=== PATIENT | female | born 1950 | race Caucasian/White ===

== ENCOUNTER 2021-05-20 16:27 | Outpatient (REF) | payer MEDICARE, SELFPAY ==
--- NOTE | ~2021-05-20 | CT_ITS ---
EXAMINATION: CT CHEST WITHOUT CONTRAST CLINICAL INFORMATION: Bronchiectasis. COMPARISON: Previous chest CT October 2020. TECHNIQUE: Multidetector volumetric CT imaging of the chest was done. Axial MIP volume rendering provided. Sagittal and coronal reformatted images were obtained. This CT examination was performed using dose optimization techniques as appropriate, variously including the following: *Automated exposure control *Adjustment of mA and/or kV according to patient size (this includes techniques or standardized protocols for targeted exams where dose is matched to indication/reason for exam; i.e. extremities or head) *Use of iterative reconstruction technique DLP: 82 mGy-cm FINDINGS: LUNGS: There is diffuse bronchiectasis and bronchial wall thickening. This is greatest in the bilateral upper lobes. There are scattered areas of bronchial wall thickening and peribronchial nodules suggestive of active airways disease. This may be slightly increased in the right middle lobe compared to October 2020 exam. There is increasing focal bronchiectasis or cystic change in the left upper lobe, for example axial image 20 series 3 measuring approximately 1 x 1.5 cm. Otherwise, this does not appear appreciably changed. There is bilateral upper lobe volume loss, left greater than right. This does not appear appreciably changed. There are multiple bilateral pulmonary nodules. This has a mixed appearance. Largest pulmonary nodules are measured. There is a 7 x 9 mm left upper lobe nodule axial image 15 series 3. This is slightly decreased in size from 7 x 11 mm October 2020 exam. There is a new 5 x 7 mm anterior right upper lobe nodule axial image 17 series 3. Previously identified adjacent 5 mm right upper lobe nodule seen on October 2020 exam axial image 10 series 2 is no longer seen. There is a new 8 x 10 mm superior segment left lower lobe nodule axial image 23 series 3. There is new airspace disease and peribronchial nodules seen in the medial segment of the right middle lobe, for example axial image 26 and 32 series 3. There is an irregularly-shaped 4 x 10 mm left lower lobe nodule axial image 32 series 3 that is decreased in size from 7 x 10 mm axial image 27 series 17 October 2020 exam. There are multiple additional smaller bilateral pulmonary nodules. MEDIASTINUM: There is mild coronary artery calcification. The mediastinum is otherwise normal. PLEURA: There is no pleural effusion. No pleural mass or thickening. AXILLA: No lymphadenopathy. UPPER ABDOMEN: Unremarkable. OSSEOUS STRUCTURES: There is a T10 vertebral body hemangioma. There is slight loss of height of the T8 vertebral body suggestive of mild compression fracture that is unchanged. Curvature of the lower thoracic spine to the right mild degenerative changes. CT/CT chest wo con IMPRESSION: Bilateral diffuse bronchiectasis and bronchial wall thickening, greatest in the upper lobes. This may be slightly increased in the right middle lobe compared to October 2019 exam. Mixed appearance of bilateral pulmonary nodules. Fleischner guidelines were followed.
== END 2021-05-20 16:28 | disposition home or self-care (01) ==
LOC: HO.CT 16:27
PROVIDERS: Visit Provider Internal Medicine Critical Care Medicine
DX: A31.9 Mycobacterial infection, unspecified (principal); R91.8 Other nonspecific abnormal finding of lung field
CPT/HCPCS: 71250

== ENCOUNTER 2024-11-15 13:10 | Outpatient (AMB) | payer OTHER, SELFPAY ==
--- NOTE | 2024-11-15 13:08 | MHC.OFFVIS ---
Vital Signs 11/15/24 13:26 Height 5 ft 3 in Weight 125 lb BMI 22.1 BP 112/64 Blood Pressure Location Rt brachial Position Sitting Intake Visit Reasons: ENP - Tremor Intake Note: Patient refrred by Gena delgado for tremors and parkinsons dx Allergies No Known Allergies Allergy (Verified 11/15/24 13:15) Medication List - Last Reconciled 11/15/24 by Salma Clarke MD albuterol sulfate 2.5 mg inhalation Q20M calcium citrate-vitamin D3 315 mg-5 mcg (200 unit) 1 tab PO DAILY carbidopa-levodopa 25-100 mg (Sinemet) 1 tab PO BID cholecalciferol (vitamin D3) 25 mcg PO DAILY cyanocobalamin (vitamin B-12) 1,000 mcg PO DAILY denosumab 120 mg subcut Q4W duloxetine 60 mg PO DAILY eletriptan (Relpax) 20 mg PO Q2-4H PRN fluoxetine 10 mg PO DAILY food supplemt, lactose-reduced ea PO gabapentin 300 mg PO BEDTIME hydrocortisone 1% (Anti-Itch (hydrocortisone)) 1 appl topical BID PRN naproxen 500 mg PO BID nitrofurantoin monohyd/m-cryst 100 mg (Macrobid) 100 mg PO BID pantoprazole DR (Protonix) 40 mg PO DAILY primidone 50 mg PO BEDTIME propranolol ER (Inderal LA) 80 mg PO BEDTIME riboflavin (vitamin B2) 25 mg PO DAILY zonisamide 25 mg PO DAILY HPI Comments Details: 73y/o female comes for evaluation of tremors<del>.</del> she has family h/o essential tremors - father. she was also diagnosed with Essential tremors more than 40 years ago Her tremors worsened in her left UE and LE - rest tremors and her also noticed worsening of gait, stiffness and slowness of movements, softer voice smaller handwriting etc . she was seen at [facility] movement disorder clinic and had ANALY scan which was positive. she has chronic sleep issues.difficulty sleeping , sleep talking. Mood- on medication for depression she is slower in using utensils She needs help with dressing , showers .she also has swallowing issues.she needs assistance with all her ADLS. Memory is not good- has word retrieval issues. Denies dizziness , hallucinations. she has double vision she has constipation . she takes sennakot she has gait problems and has frequent falls. she was started on sinemet 25/100 bid by PCP> she has h/o seizure disorder - followed up by [facility] Epilepsy clinic .Last seizure was more than 12 years ago. [facility] Medical History (Updated 11/15/24 @ 13:55 by Salma Clarke MD) Hx of migraines Humerus fracture Bronchiectasis Epilepsy Parkinson disease Tremor Depression Surgical History (Updated 11/15/24 @ 13:24 by NANCY Ching) H/O wrist surgery History of hip surgery Family History (Updated 11/15/24 @ 13:25 by NANCY Ching) Mother Emphysema lung Father Lung cancer Social History (Updated 11/15/24 @ 13:24 by NANCY Ching) Alcohol intake: never Patient Tobacco Use Status: Never used Tobacco Physical Exam Vital Signs: Last Vital Signs BP 112/64 11/15/24 13:26 BMI result Body Mass Index 22.1 Const General: cooperative, comfortable and no acute distress Neuro Other: Antecollis decreased facial expression and blink Mild left hand rest tremors 1 cogwheel rigidity left UE FFM mildly decreased Foot taps - severely decreased Gait slow stooped, loss of balance speech hypophonia Assessment & Plan Assessment & Plan (1) Parkinson disease: Code(s): G20.A1 - Parkinson's disease without dyskinesia, without mention of fluctuations Category: Medical Qualifiers: Dyskinesia presence: without dyskinesia Fluctuating manifestations: without fluctuating manifestations Qualified Code(s): G20.A1 - Parkinson's disease without dyskinesia, without mention of fluctuations (2) Epilepsy: Code(s): G40.909 - Epilepsy, unspecified, not intractable, without status epilepticus Qualifiers: Epilepsy type: unspecified Intractability: not intractable Plan Discussed with her about Parkinsons disease I will trial higher dose of carbidopa/levodopa 25/100 tid Continue PT ANALY scan from [facility] Home speech therapy Orders: Orders PT Evaluation and Treatment Today G20.A1 - Parkinson's disease without dyskinesia, without mention of fluctuations [facility]errals [facility] Referral G20.A1 - Parkinson's disease without dyskinesia, without mention of fluctuations Medications: New carbidopa-levodopa 25-100 mg (Sinemet) 1 tab PO TID 90 tabs 2RF Coding Level of Care Code New Pt Level 4 (87907) Complex EM visit Add On G2211 Diagnoses Parkinson's disease without dyskinesia or fluctuating manifestations G20.A1 Dyskinesia presence: without dyskinesia Fluctuating manifestations: without fluctuating manifestations Epilepsy G40.909 Epilepsy type: unspecified Intractability: not intractable
[2024-11-15 13:26] VITALS: BP 112/64; BMI 22.1
--- OUTSIDE RECORDS SUMMARY | 2024-11-15 14:15 | XMS_ITS | Patient Health Record ---
Author Organization [facility] [place] Address [address] [place] [address] Care Team Providers Care Linen Room Custodian Name Role Phone Víctor Desir Primary Care Provider Reason For Referral No Information Plan Of Treatment No Information
--- OUTSIDE RECORDS SUMMARY | 2024-11-15 14:16 | XMS_ITS | Data Portability ---
Author Organization [employer] [facility], [facility] Address [address] [place] [address] Care Team Providers Care Credit Operations Processor Name Role Phone SANA THORNTON Primary Care Provider HIM CCA OTHER Assessment Encounter Date Assessment Date Assessment LastModified by Organization Details LastModified Time 04/14/2023 04/14/2023 72 yo F with recent rehab stay, now with few days of increased urinary frequency. Pt does not straight cath, unclear why that was reported history. VS wnl. No abd pain on exam. Voided UA with +nitrites, 2+ LEs, 3+blood c/w uncomplicated UTI. UCX sent to [employer]. Given ceftriaxone 1g. Will pick pulling machine operator rx macrobid BID x remaining 4 days tomorrow. [email or web address] Not available 04/14/2023 21:05:56 07/22/2024 07/22/2024 I provided real -time medical direction via phone for this encounter, and was available for additional phone based assistance as needed. I have reviewed and agree with the Assessment and Plan as documented by the Route Vending Machine Servicer. We discussed the diagnostic uncertainty of home visits and the risk associated with this. Advised we cannot draw labs as this is a BLS visit and cannot fully work up AMS in the home. She has an appointment with her PCP August 19. I suggested to the patient's that she try and move it up in case there is a cancellation and she verbalized that she would try but she doubted it would happen. In this case the patient and I felt this to be an acceptable and reasonable amount of risk given the benefit of avoiding an ED visit. The patient/ Zofia given the opportunity to ask questions. Advised if develops CP/severe SOB/turning blue/uncontrolle d n/v/d / severely increasing AMS/uncontrolled seizures/syncope /acute focal neurologic deficits such as acute weakness, speech changes/hi fever to call 911-patient and verbalized understanding of instructions to me [email or web address] Not available 07/22/2024 15:51:07 Plan of Treatment Reminders Order Date Submit Date Provider Last Modified By Organization Details Last Modified Time Details Appointments None recorded. Lab culture, urine 2024 025 [facility] (Centralized Electronic Ordering - All Locations), Patient Can Go To The Location Of Their Choice, [id number] 08:10:41 urinalysis, dipstick 2024 025 [facility], [address] [place] [address], [phone] 5 21:27:53 culture, urine 2022 023 [facility], [address] [place] [address], [place], [address], 06:37:22 urinalysis, dipstick [address], [address] [place] [address], [phone] 19:44:35 Referral None recorded. Procedures None recorded. Surgeries None recorded. Imaging None recorded. Medication Orders Macrobid 100 mg capsule 2022 023 [facility]/Pharmacy #[id number], [address] [place], [address], 19:44:35 ceftriaxone 1 gram solution for injection 2022 023 [email or web address] 7 [facility]/Pharmacy #[id number], [address] [place], [address], 19:44:33 Patient TargetsNo targets recorded. Patient InstructionsNo instructions recorded. Reason for Referral None Reported. Results Created Date Observation Date Name Description Value Unit Range Abnormal Flag Note LastModifiedBy Organization Detail LastModifiedTime 04/14/2004/19/2023 CULTU RE, URINE , ROUTI NE culture, urine, routine SEE NOTE abnormal CULTU RE, URINE , ROUTI NE Micro Numbe r: [id number] Test Statu s: Final Speci men Sourc e: Urine Speci men Quali ty: Adequ ate Resul t: Great er than 100,0 00 CFU/m L of Esche gloria a coli E.col i ----- ----- ----- - INT TOBI AMOX/ CLAVU LANAT E S 4 AMPIC ILLIN R >=32 AMP/S ULBAC AGUILAR I 16 CEFAZ ALBERTO NR <=4 2 CEFEP INDIO S <=1 CEFTA ZIDIM E S <=1 CEFTR IAXON E S <=1 CIPRO FLOXA ABAD S <=0.2 5 GENTA MICIN S <=1 IMIPE NEM S <=0.2 5 LEVOF LOXAC IN S <=0.1 2 NITRO FURAN TOIN S <=16 PIP/T AZOBA CTAM S <=4 TOBRA MYCIN S <=1 TRIME THOPR IM/GALEANO LFA S <=20 S=Oumou cepti ble I=Int ermed iate R=Res istan t * = Not Teste d NR = Not Repor ethel NN = See Thera py Comme nts THERA PY COMME NTS Note 1: For infec tions other than uncom plica ethel UTI cause d by E. coli, K. pneum oniae or P. mirab ilis: Cefaz alberto is resis tant if TOBI > or = 8 mcg/m L. (Dist ingui shing susce ptibl e versu s inter media te for isola ariane with TOBI < or = 4 mcg/m L requi res addit ional testi ng.) Note 2: For uncom plica ethel UTI cause d by E. coli, K. pneum oniae or P. mirab ilis: Cefaz alberto is susce ptibl e if TOBI <32 mcg/m L and predi cts susce ptibl e to the oral agent s cefac kodi, cefdi stephanie, cefpo doxim e, cefpr ozil, cefur oxime , cepha lexin and lorac arbef . Not Available [facility] [address] [place], [place], [address], 04/20/2023 13:00:17 04/14/20 23 04/14/2023 urina lysis , dipst ick Leukocytes ++ Not Available [facility] - [facility] [address] [place] [address], [phone] 04/14/2023 19:38:09 04/14/20 23 04/14/2023 urina lysis , dipst ick Nitrite positi ve Not Available [facility] - [facility] [address] [place] [address], [phone] 04/14/2023 19:38:09 04/14/20 23 04/14/2023 urina lysis , dipst ick Blood 3+ Not Available [facility] - [facility] [address] [place] [address], [phone] 04/14/2023 19:38:09 04/14/20 23 04/14/2023 urina lysis , dipst ick Specific [place] 1.2 Not Available [facility] - [facility] [address] [place] [address], [phone] 04/14/2023 19:38:09 07/23/19 25 07/24/2024 URINE CULTU RE,CO MPREH ENSIV E urine culture,comp rehensive Final report Not Available [facility] ([facility]) [address] [facility], [place], [address], 07/24/2024 08:10:40 07/23/19 25 07/24/2024 URINE CULTU RE,CO MPREH ENSIV E result 1 COMMEN T More than 3 organ isms recov ered, none predo minan t. Pleas e submi t anoth er cultu re if clini kala indic ated. Not Available [facility] ([facility]) [address] [facility], [place], [address], 07/24/2024 08:10:40 Result Notes None recorded. Medical Equipment None Reported. Allergies Allergen ID Allergen Name Allergen Category Reaction Reaction Severity Criticality Documentation Date Start Date Code Code System Note Provider Name and Address Organization Details Recorded Time 94422 Macrobid medicatio n Not available Not available Not available 07/22/2024 81567 1 RxNorm think s the patie nt may devel op diarr hea and a rash with this Mikaela Lux MD [address] [place] [address],[address], [place], [address], [employer], [employer] 15:53:31 75273 lamotrigi ne medicatio n dizziness Not available Not available 07/22/2024 40113 RxNorm Mikaela Lux MD [address] [place] [address],[address], [place], [address], [employer], [employer] 15:54:01 48300 amitripty line medicatio n Not available Not available Not available 07/22/2024 704 RxNorm Mikaela Lux MD [address] [place] [address],[address], [place], [address], [employer], [employer] 15:54:14 51331 amoxicill in medicatio n Not available Not available Not available 07/22/2024 723 RxNorm GI upset Mikaela Lux MD [address] [place] [address],[address], [place], [address], [employer], [employer] 15:54:35 43153 Ativan medicatio n Not available Not available Not available 07/22/202440319 9 RxNorm Mikaela Lux MD [address] [place] [address],[address], [place], [address], [employer], [employer] 15:54:59 03218 Flagyl medicatio n Not available Not available Not available 07/22/202461597 6 RxNorm Mikaela Lux MD [address] [place] [address],[address], [place], [address], [employer], [employer] 15:55:09 36009 nystatin medicatio n Not available Not available Not available 07/22/2024 7597 RxNorm Mikaela Lux MD [address] [place] [address],[address], [place], [address], [employer], [employer] 15:55:14 90554 Velosef medicatio n Not available Not available Not available 07/22/202497 0 RxNorm Mikaela Lux MD [address] [facility],[address], [place], [address], [facility], [place] 5 15:55:21 Medications Name Sig Start Date Stop Date Status Note LastModified by Organization Details LastModified Time fluoxetine 40 mg capsule TAKE 1 CAPSULE (40 MG TOTAL) BY MOUTH DAILY. active Not Available Not Available No t Available primidone 50 mg tablet TAKE 2 TABLETS BY MOUTH 2 TIMES A DAY. active Not Available Not Available No t Available propranolol 80 mg tablet TAKE 1 TABLET (80 MG TOTAL) BY MOUTH 2 TIMES A DAY. active Not Available Not Available No t Available albuterol sulfate 2.5 mg/3 mL (0.083 %) solution for nebulization INHALE 1 VIAL (3 ML) BY NEBULIZATIO N EVERY 6 HOURS NEEDED. active Not Available Not Available No t Available propranolol 60 mg tablet TAKE 1 TABLET (60 MG TOTAL) BY MOUTH 2 TIMES A DAY. active Not Available Not Available No t Available zonisamide 100 mg capsule TAKE 3 CAPSULES (300 MG TOTAL) BY MOUTH ONCE A DAY. active Not Available Not Available No t Available pantoprazole 40 mg tablet,delay ed release TAKE 1 TABLET BY MOUTH EVERY DAY active Not Available Not Available No t Available fluoxetine 10 mg capsule TAKE 1 CAPSULE BY MOUTH EVERY DAY active Not Available Not Available No t Available gabapentin 300 mg capsule TAKE 3 CAPSULES (900 MG TOTAL) BY MOUTH EVERY NIGHT. active Not Available Not Available No t Available fluoxetine 20 mg capsule TAKE 1 CAPSULE BY MOUTH EVERY DAY active Not Available Not Available No t Available Vitamin B-12 1,000 mcg tablet TAKE 1 TABLET (1,000 MCG TOTAL) BY MOUTH DAILY active Not Available Not Available Not Available nitrofuranto in monohydrate/ macrocrystal s 100 mg capsule TAKE 1 CAPSULE BY MOUTH EVERY 12 HOURS FOR 5 DAYS active Not Available Not Available N ot Available sodium chloride 7 % for nebulization TAKE 4 ML BY NEBULIZATIO N 2 (TWO) TIMES A DAY. active Not Available Not Available No t Available Vitals Date Recorded Heart rate Oxygen saturation Oxygen saturation in Arterial blood by Pulse oximetry Body height Body weight Body temperature Respiratory rate Systolic blood pressure Diastolic blood pressure Provider Name and Address Organization Details Last Updated DateTime 5 88 /min 94 % 94 % 160.02 cm 53417 g 98.4 [degF] 16 /min 105 mm[Hg] 65 mm[Hg] Not Available [employer] 5 13:34:23 Date Recorded Oxygen saturation Oxygen saturation in Arterial blood by Pulse oximetry Body temperature Heart rate Respiratory rate Systolic blood pressure Diastolic blood pressure Provider Name and Address Organization Details Last Updated DateTime 3 98 % 98 % 98.4 [degF] 70 /min 16 /min 154 mm[Hg] 84 mm[Hg] Not Available [facility] 3 19:36:16 Social History None recorded. Functional Status None recorded. Mental Status None recorded. Family History Nothing Reported. Medical History No medical history recorded. Gynecological HistoryNo gynecological history recorded. Obstetrics History GPAL:G 0 P 0 0 0 0 Past Encounters Encounter ID Performer Location Encounter Start Date Encounter Closed Date Diagnosis/Indication Diagnosis SNOMED-CT Code Diagnosis ICD10 Code Diagnosis Note [id number] ALLAN FRAIRE MD [address] [phone] 04/14/2023 19:36:11 04/14/2023 22:40:26 Urinary symptoms 958532304 R39.9 [id number] Mikaela Lux MD [facility] - [address] [address] 07/22/2024 13:34:19 07/22/2024 20:51:51 Altered mental status 729478471 R41.82 UA not definitive ly indicative of an infection advised will send culture and call if culture reveals the need for treatment. I explained it will take at least 3 days to get the culture result but if they have not heard from [employer]or software by Thursday they are welcome to call us to inquire about the results Also advised over the weekend if the patient is not doing well but not ill enough to go to the ER they are always welcome to call for a revisit. They verbalized understand ing Health Concerns Section Related Observation LastModified by Organization Detai ls LastModified Time None Recorded Concern Status LastModified by Organization Details LastModified Time None Recorded Advance Directives Directive None Recorded Payers Insurance Date Sequence Insurance Name Policy Number Policy Phipps Covered Member ID Phipps Member ID Guarantor Name 07/22/2024 1 [facility] - DOS ON OR AFTER 2022 - DUAL ELIGIBLE - NURSING HOME OPTIONS AND ONE CARE (MEDICARE REPLACEMENT/ADV ANTAGE - HMO) Lyle Garcias [id number] Lyle Garcias Notes Date Note Type Note Provider Name and Address Organization Details Recorded Time 04/14/2023 text/html [facility] Nursing Assessment: Chief Complaints: UTI/Pyelonephritis Allergies: No Known Pain Assessment: Level 5 out of 10 Comments: Discharged from rehab 6 days ago. Had a fall - broke her arm. History of cognitive issues. Multiple co-morbidities. Eating and drinking like normal. Denies fever and chills. No pain with urination - no odor noted. Has been having increased frequency of urination for two days. Would need straight cath for a sample. Taking Tylenol and ibuprofen. Krissy Aragon RN .................. .................. .................. .................. .................. .................. .................. ............... Route Vending Machine Servicer Note From Mike White: Pt report urinary frequency and pain for 2 days. Denies any fever chill denies any CVA pain or tenderness on scene dip done and [facility] was called pt given 1g ceftrixone and cleared. .................. .................. .................. .................. .................. .................. .................. ............... Disposition: Fulfilled ALLAN FRAIRE MD [address] [place] [address],[address], [place], [address], [place] [email or web address] 04/14/2023 21:06:06 07/22/2024 text/html [facility] Nurse Triage Notes (Shonda Garza): Reason For Request: UTI Denies: Unable to void greater than 5 hours Erection that will not go away after 2 hours Fall or trauma that results in urinary incontinence in the setting of pain Fall or injury that results in incontinence in the absence of pain Lower back pain either unilateral or bilateral, unable to void, painful urination -hematuria Painful urination Frequent and increased urination with flank pain Painful urination with or without fever Inability to fully empty bladder Chief Complaints: Urinary Symptoms PMH: Dementia (e.g., Alzheimer's Disease), Migraine, Epilepsy/Seizure Disorder PMH Reviewed at 07/22/2024 Allergies Reviewed at 07/22/2024:23 Comments: Director Family verified the name//address and phone number. Pt family calling . Pt has been having increased confusion. She does have a h/o mild dementia but symptoms have increased. She is unable to verbal her symptoms. She needs assistance to void but is not incontinent. She has not noticed a change of color/ odor but does have decreased stream. She does not have any fever/ chills, unsure of nausea and vomiting. Wheel chair mostly Education provided on the response time and the Patient was advised to monitor reported s/s and seek emergency treatment if needed Route Vending Machine Servicer Organization Information for Jose Alfredo Jimenez LANG Business Legal Name: [employer]. Address: [address] [place] [address], Metal Door Assembler: Minh Walker MD CLIA No.: [id number] Route Vending Machine Servicer POC Test Results from Jose Alfredo Jimenez [employer] Urine Dipstick (13:30:40) Urine leukocytes: 15+ TRACIE Urine nitrites: - NIT Urine urobilinogen: - URO Urine protein: 15+ PRO Urine pH: 7.0 pH Urine blood: - BLO Urine specific gravity: 1.015 SG Urine ketones: 5+ KET Urine bilirubin: - ZECHARIAH Urine glucose: - GLU .................. .................. .................. .................. .................. .................. .................. ............... Route Vending Machine Servicer Note From Jose Alfredo Jimenez: SC1 sent to the above address for the pt who has had a change in her mental status. The pt is also having more hand tremors noted by her . The pt was being tested for a possible UTI as they were advised that that could be the change in her mental status. The pt had tried to void earlier prior to my arrival and couldn't, I asked the pt if she was able to void for me otherwise I was possibly going to have to straight cath the pt. The pt was able to void a large amount and i got enough to do a culture and also a dip. Dr Lux was contacted and the test results were gone over and she spoke with the pt and her and they went over the warning signs, chest pain, severe shortness of breath, increased altered mental status, syncope, increased fever. They both understood the instructions and SC1 cleared the call. [facility] Orders: .................. .................. .................. .................. .................. .................. .................. ............... [facility] Consulted: Mikaela Lux .................. .................. .................. .................. .................. .................. .................. ............... Disposition: Fulfilled Mikaela Lux MD [address] [facility],[address] [facility], [place], [address], ELIZABETH - [employer] 07/22/2024 15:55:34 OBGyn Episode No OBEpisode recorded.
--- OUTSIDE RECORDS SUMMARY | 2024-11-15 14:16 | XMS_ITS ---
Author Organization [facility] Care Team Providers Care Liquefied Natural Gas Plant Operator Name Role Phone Tawny Emanuel Unavailable Unavailable Beulah Blancas Unavailable Unavailable Karol Foote Unavailable Unavailable Allergies and adverse reactions Code CodeSystem Substance Reaction Severity StartDate Concern Status 7597 RXNORM Nystatin Unknown 11/30/2019 active Lamictal Unknown 11/30/2019 active Flagyl Unknown 11/30/2019 active 2239 RXNORM Cephradine Unknown 11/30/2019 active Ativan Unknown 11/30/2019 active 723 RXNORM Amoxicillin Unknown 11/30/2019 active 704 RXNORM Amitriptyline Unknown 11/30/2019 active Care Team Name Role Address Phone Organization Dates Tawny Emanuel PCP [address] [place] [address], [facility] (Office): : [facility] 11/30/2019 - 12/15/2019 Beulah Blancas [address] [place] [address], [facility], [facility] (Office): : [facility] 11/30/2019 - 12/15/2019 Karol Foote [address] [place] [address], [facility] (Office): : [facility] 11/30/2019 - 12/15/2019 Mental Status Section Date Assessment Total Score Description 12/15/2019 BIMS 15 cognitively int act CAM 0 No delirium ind icated PHQ-9 00 12/07/2019 BIMS 15 cognitively int act CAM 0 No delirium ind icated PHQ-9 00 Problems Problem # Description Date of onset Resolved Date Code CodeSystem Concern Status 1 URINARY TRACT INFECTION, SITE NOT SPECIFIED 12/04/[address] active 2 ANEMIA, UNSPECIFIED 11/30/[address] active 3 ANXIETY DISORDER, UNSPECIFIED 11/30/[address] active 4 BASAL CELL CARCINOMA OF SKIN, UNSPECIFIED 11/30/[address] active 5 COVID-19 11/30/[address] active 6 DIPLOPIA 11/30/[address] active 7 EPILEPSY, UNSPECIFIED, INTRACTABLE, WITHOUT STATUS EPILEPTICUS 11/30/[address] active 8 ESSENTIAL TREMOR 11/30/[address] active 9 FRACTURE OF SUPERIOR RIM OF LEFT PUBIS, SUBSEQUENT ENCOUNTER FOR FRACTURE WITH ROUTINE HEALING 11/30/[address] active 10 GASTRO-ESOPHAGEAL REFLUX DISEASE WITH ESOPHAGITIS 11/30/[address] active 11 GASTRO-ESOPHAGEAL REFLUX DISEASE WITHOUT ESOPHAGITIS 11/30/[address] active 12 HYPERTENSIVE HEART DISEASE WITHOUT HEART FAILURE 11/30/[address] active 13 HYPOTENSION, UNSPECIFIED 11/30/[address] active 14 MAJOR DEPRESSIVE DISORDER, RECURRENT, UNSPECIFIED 11/30/[address] active 15 MIGRAINE, UNSPECIFIED, NOT INTRACTABLE, WITHOUT STATUS MIGRAINOSUS 11/30/[address] active 16 OTHER ABNORMALITIES OF GAIT AND MOBILITY 11/30/[address] active 17 OTHER DISORDERS OF ELECTROLYTE AND FLUID BALANCE, NOT ELSEWHERE CLASSIFIED 11/30/[address] active 18 OTHER OSTEOPOROSIS WITHOUT CURRENT PATHOLOGICAL FRACTURE 11/30/[address] active 19 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 11/30/[address] active 20 REPEATED FALLS 11/30/[address] ac tive 21 RETENTION OF URINE, UNSPECIFIED 11/30/[address] active 22 ROSACEA, UNSPECIFIED 11/30/[address] active 23 SOLITARY PULMONARY NODULE 11/30/[address] active 24 UNSPECIFIED CHRONIC BRONCHITIS 11/30/[address] active 25 WEAKNESS 11/30/[address] active Reason for Referral No Reasons for Referral Entered Social History Social History Observation Description Start Date End Date Code Code System Current Smoking Status Tobacco smoking consumption unknown 829456296 SNOMED CT Sex Assigned At Female 1950 37232-7 [facility] Gender Identity Vital Signs Code Code System Vitals Name Values and Units Timing Information 12405-2 [facility] Pain Level Value=2.0 12/15/2019 9279-1 [facility] Respiratory Rate Value=16.0 Units=/m in 12/15/2019 8462-4 [facility] Blood Pressure-Diastolic Value=62 Un its=mmHg 12/15/2019 8480-6 [facility] Blood Pressure-Systolic Tyqla=447 Un its=mmHg 12/15/2019 8310-5 [facility] Body Temperature Value=98.2 Units= F 12/15/2019 8867-4 [facility] Heart rate Value=74.0 Units=/min 36197-5 [facility] O2 % BldC Oximetry Value=94.0 Units= % 12/15/2019 60664-6 [facility] Weight Tmswu=804.0 Units=Lbs 8302-2 [facility] Height Value=63.0 Units=Inches 11/30/2019
--- OUTSIDE RECORDS SUMMARY | 2024-11-15 14:16 | XMS_ITS | Encounter Summary ---
Author Organization [facility] Address [address] [place] [address] Care Team Providers Care Permanent Mold Supervisor Name Role Phone Kimmy Owen Primary Care Provider [phone] Encounter Details Date Type Department Care Team (Late Contact Info) Description 08/11/2024 Nonpareil Message [facility] Financial Clearance Department [address] [place] [address] Transave, Generic Provider [address] [place], [place] [id number] Approval Social History Tobacco Use Types Packs/Day Years Used Date Smoking Tobacco: Never Smokeless Tobacco: Never Comments:: Alcohol Use Standard Drinks/Week Comments No 0 (1 standard drink = 0.6 oz pur e alcohol) Comments Unknown Sex and Gender Information Value Date Recorded Sex Assigned at Female 07/23/2023 10:47 AM EST Legal Sex Female 9:06 AM EDT Gender Identity Female 09/21/2024 9:22 AM EDT Sexual Orientation Lesbian or Faria 09/21/2024 9: 22 AM EDT documented as of this encounter Plan of Treatment Upcoming Encounters Date Type Department Care Team (Late st Contact Info) Description 02/06/2025 1:00 PM EDT Office Visit [facility] [address] [place] [address] Ana Mahajan MD [address] [place] [address] 02/10/2025 9:00 AM EDT Follow-Up [facility] [address] [place] [address] Yari Worthy MD [address] [place] [address] [place] [address] 03/03/2025 1:30 PM EDT Office Visit [facility] [address] [place] [address] Porsha Chu MD [address] [place] [id number] documented as of this encounter Visit Diagnoses Not on filedocumented in this encounter Care Teams Permanent Mold Supervisor Relationship Specialty Start Date End Date Kimmy Owen [address] [address] PCP - General Family Medicine 01/23/21 documented as of this encounter
== END 2024-11-15 14:06 | disposition home or self-care (01) ==
PROVIDERS: PCP Family Medicine; Visit Provider Psychiatry & Neurology Neurology
DX: G20.A1 Parkinson's disease without dyskinesia, without mention of fluctuations (principal); G40.909 Epilepsy, unspecified, not intractable, without status epilepticus
CPT/HCPCS: 99204; G2211

== ENCOUNTER → 2024-11-15 13:10 | Outpatient (BNVA) | payer OTHER, SELFPAY | PROVIDERS: PCP Family Medicine; Visit Provider Psychiatry & Neurology Neurology | DX: G20.A1 Parkinson's disease without dyskinesia, without mention of fluctuations (principal); G43.909 Migraine, unspecified, not intractable, without status migrainosus | CPT/HCPCS: 99202 ==

== ENCOUNTER 2025-02-16 13:00 | Outpatient (AMB) | payer OTHER, SELFPAY ==
--- OUTSIDE RECORDS SUMMARY | 2024-11-25 10:30 | XMS_ITS ---
Author Organization [facility] Address [address] [address] [place] [address] Care Team Providers Care Metal Cans Supervisor Name Role Phone Kimmy Owen Primary Care Provider Hill Hennessy Unavailable [phone] Allergies Allergen (clinical drug ingredient) Drug/Non Drug Allergy documented on EMR Reaction Allergy Type Onset Date Status amitriptyline Amitriptyline HCl Unknown Drug Allergy Active lorazepam Ativan Unknown Drug Allergy Active amoxicillin Amoxicillin stomach upset Drug Allergy Active cephradine Cephradine Unknown Drug Allergy Activ e lamotrigine lamoTRIgine Unknown Drug Allergy Act ivan lorazepam LORazepam Unknown Drug Allergy Active metronidazole metroNIDAZOLE Unknown Drug Allergy Active nystatin Nystatin rash Drug Allergy Active REASON FOR VISIT Cx, transportation company didn't show up Medications Medication SIG (Take, Route, Frequency, Duration) Notes Start Date End Date Status Naproxen 500 MG 1 TAB AT ONSET OF HEADACHE, MAY REPEAT IN 8 HOURS, NO MORE THAN 2 PER DAY OR 6 PER WEEK Oral; Duration: 28 Days Active Sodium Chloride 7 % Inhalation; Duration : 30 Days Active Pantoprazole Sodium 40 MG TAKE 1 TABLET BY MOUTH DAILY Oral; Duration: 90 Days Active DULoxetine HCl 60 MG Oral; Duration: 90 Days Active Zonisamide 100 MG TAKE 2 CAPSULES BY M OUTH ONCE A DAY. TAKE WITH TWO 25 MG PILLS FOR A TOTAL OF 250 MG DAILY Oral; Duration: 90 Days Active Rizatriptan Benzoate 10 MG Oral; Duration: 17 Days Active Vitamin B-12 1000 MCG TAKE 1 TABLET (1,0 00 MCG TOTAL) BY MOUTH DAILY Oral; Duration: 90 Days Active Primidone 50 MG Oral; Duration: 90 Days Active Carbidopa-Levodopa 25-100 MG Oral; Duration: 90 Days Acti ve Eletriptan Hydrobromide 20 MG Oral; Duration: 6 Days Activ e Propranolol HCl 80 MG Oral; Duration: 90 Days Active Gabapentin 300 MG Oral; Duration: 90 Days Active Problems Problem Type SNOMED Code ICD Code Onset Dates Problem Status W/U Status Risk Notes Problem Parkinson's disease with dyskinesia and fluctuating manifestations (G20.B2) Active confirmed Problem Chronic migraine without aura, non-intractab le ([id number] 100) Chronic migraine w/o aura w/o status migrainosus, not intractable (G43.709) Active confirmed Problem Localization- related epilepsy (183631964) Partial idiopathic epilepsy with seizures of localized onset, not intractable, without status 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) Active confirmed Encounters Encounter Location Date Provider Diagnosis [address] [address] 11/25/2024 Hill De La Garza Plan Of Treatment Next Appt Details Provider Name:Hill De La Garza, 04/25/2025 02:00:00 PM, [address] [place] [address], [place] [address], [place], [address], Progress Notes * TAWANNAAleksandrOB:1950 (74 yo F)Acc No.[id number]:11/25/2024 Progress Notes Patient: Cat GRANT Provider: Karma De La Garza :1950 A ge:73 Y S ex:Female Date:11/25/2024 Address:[address] [place] [address] , [address], [id number] Pcp:Kimmy Owen Subjective: * Chief Complaints: * 1 . Cx, transportation company didn't show up. * Medical History: P arkinson's disease with dyskinesia and fluctuating manifestations, Chronic migraine w/o aura w/o status migrainosus, not intractable, Partial idiopathic epilepsy with seizures of localized onset, not intractable, without status epilepticus. * Medications: T aking Carbidopa-Levodopa 25-100 MG Tablet Oral , Taking Primidone 50 MG Tablet Oral , Taking Rizatriptan Benzoate 10 MG Tablet Disintegrating Oral , Taking Sodium Chloride 7 % Nebulization Solution Inhalation , Taking Naproxen 500 MG Tablet 1 TAB AT ONSET OF HEADACHE, MAY REPEAT IN 8 HOURS, NO MORE THAN 2 PER DAY OR 6 PER WEEK Oral , Taking DULoxetine HCl 60 MG Capsule Delayed Release Particles Oral , Taking Pantoprazole Sodium 40 MG Tablet Delayed Release TAKE 1 TABLET BY MOUTH DAILY Oral , Taking Zonisamide 100 MG Capsule TAKE 2 CAPSULES BY MOUTH ONCE A DAY. TAKE WITH TWO 25 MG PILLS FOR A TOTAL OF 250 MG DAILY Oral , Taking Gabapentin 300 MG Capsule Oral , Taking Propranolol HCl 80 MG Tablet Oral , Taking Vitamin B-12 1000 MCG Tablet TAKE 1 TABLET (1,000 MCG TOTAL) BY MOUTH DAILY Oral , Taking Eletriptan Hydrobromide 20 MG Tablet Oral * Allergies: C ephradine - Criticality Unknown, Nystatin: rash, lamoTRIgine - Criticality Unknown, metroNIDAZOLE, LORazepam - Criticality Unknown, Amoxicillin: stomach upset, Amitriptyline HCl - Criticality Unknown, Ativan - Criticality Unknown. Objective: * Vitals: Assessment: Plan: * Treatment: * * Electronic signature of Tim De La Garza M.D. on 02/16/2025 at 02:29 PM EDT Sign off status: Pending * Provider: Karma De La Garza Date: 0 11/25/2024 Generated for Jerson leija/Jose/Pilo on: 1 02:29 PM EDT
--- NOTE | 2025-02-16 13:03 | MHC.OFFVIS ---
Vital Signs 02/16/25 13:04 Height 5 ft 3 in Weight 125 lb BMI 22.1 BP 110/60 Blood Pressure Location Rt brachial Position Sitting Pulse 62 Pulse Source Pulse Oximeter Pulse Oximetry (%) 96 Oxygen Delivery Method Room Air Intake Visit Reasons: 3 mo follow up Intake Note: Patient presents follow up Parkinson medication. Patient states medication help somewhat. Allergies No Known Allergies Allergy (Verified 02/16/25 13:08) HPI Comments Details: 74y/o female comes for an evaluation of tremors, and management of Parkinsons Disorder. She has a h/o seizure disorder and is followed up by [facility], her last seizure was more than 12 years ago, she is on Zonisamide 250mg qhs. She was also diagnosed with Essential tremors more than 40 years ago. Alvaro Scan is + for PD and she is on CD/LD Sinemet TID 9:30AM 1, 2:30pm 1, and 730pm 1. Pt. education reviewed today re: timing and absorption of medication, pt. reminded of dietary restrictions to avoid meat products within 2 hours of taking medication, she is to take this medication with a cracker or a piece of fruit and full glass of 8oz. water. Blunted facial expression. Her tremors decreased since last visit, left UE and LE - rest tremors, now worse in the evenings, and her Zofia also noticed worsening of gait, with stiffness and slowness of movements, shuffling of feet. Hypophonia with dysarthria, voice is mumbled, soft low monotone breathy and difficulty with projecting, smaller handwriting etc. She has chronic sleep issues, insomnia and sleep talking. Declines HST today, despite pt education and benefits of therapy. Mood is depressed, now she is taking duloxetine, as fluoxetine was ineffective. She is slow to use utensils and drops things from her hands due to weakness and tremors. She needs assistance with all her ADLS dressing, showers, shopping, feeding herself, has health and fitness instructor come for 2 hours/ week. Dysphagia she has difficulty with solids and liquids, denies drooling. Memory is poor- has word retrieval issues, slow to process and respond, confused, requires repetition, and redirection. Denies dizziness, and hallucinations. She has double vision and headaches, taking rizatriptan and Qulipta. She has constipation, takes sennakot, will have a BM 3x a week. She has gait instability, ambulates with a walker, denies falls since last visit, has PT 2x a week with [facility] in [place]. She has been taking propranolol 80mg po at bedtime. Though Zofia her partner says she is taking 80mg po BID. She has been taking Gabapentin 300mg po x3 at bedtime, would like to reduce it to 600mg qpm. She has Nebulizer treatments for Brochiectasis. [facility] Medical History Hx of migraines Humerus fracture Bronchiectasis Epilepsy Parkinson disease Tremor Depression Surgical History H/O wrist surgery History of hip surgery Family History Mother Emphysema lung Father Lung cancer Social History Alcohol intake: never Patient Tobacco Use Status: Never used Tobacco Review of Systems Neuro Reports confusion Psych Reports confusion Physical Exam Vital Signs: Last Vital Signs Pulse 62 02/16/25 13:04 BP 110/60 02/16/25 13:04 Pulse Ox 96 02/16/25 13:04 Oxygen Delivery Method Room Air 02/16/25 13:04 BMI result Body Mass Index 22.1 Confused 74 year old ambulates with rolling walker. Const General: cooperative, no acute distress and confusion Nutritional Appearance: average body habitus Orientation/consciousness: confusion Limitations: ambulation with walker HEENT Face and sinus: Yes face symmetric Throat: Yes other (mallampti score is 3) Neck Neck: Yes full ROM Neuro Other: Antecollis head leans to her left, slouches in chair, folds over decreased facial expression and blink Mild left hand rest tremors 1 cogwheel rigidity left UE FFM mildly decreased Foot taps - severely decreased Gait slow stooped, loss of balance and gait instability speech hypophonia and monotone, breathy voice General: confusion Cranial nerves: Yes Ability to bilaterally rotate head present and Yes Ability to bilaterally elevate shoulders present Gait exam (Neuro): Shuffling gait present Motor exam (neuro): Abnormal motor strength present and Abnormal muscle tone present Coordination: [id number] test normal (dysmetria ), rapid alternating movements of the distal upper extremity normal (gets confused) and rapid alternating movements of the distal lower extremity normal (decreased, slow movements) Psych Other: somnolent Mental Status: other (confused ) Insight: Limited insight present (Psych) Judgement: Poor judgement present (Psych) Results Reviewed Results Reviewed: Notes from [facility] ALVARO scan Results Assessment & Plan Assessment & Plan (1) Parkinson disease: Code(s): G20.A1 - Parkinson's disease without dyskinesia, without mention of fluctuations Category: Medical Qualifiers: Dyskinesia presence: without dyskinesia Fluctuating manifestations: without fluctuating manifestations Qualified Code(s): G20.A1 - Parkinson's disease without dyskinesia, without mention of fluctuations (2) Epilepsy: Code(s): G40.909 - Epilepsy, unspecified, not intractable, without status epilepticus Category: Medical Qualifiers: Epilepsy type: other Intractability: intractable Status epilepticus: without status epilepticus Qualified Code(s): G40.804 - Other epilepsy, intractable, without status epilepticus (3) Insomnia: Code(s): G47.00 - Insomnia, unspecified Category: Medical Qualifiers: Insomnia type: primary Qualified Code(s): F51.01 - Primary insomnia (4) Coarse tremors: Code(s): G25.2 - Other specified forms of tremor Category: Medical Plan Parkinsons disease education provided with support groups at [facility] and [employer] in [place], working with a Physical Therapist will improve rigidity and tremors along with gait and balance strengthening exercises as pt is decondition. Carbidopa/levodopa 25/100 tid to qid, will monitor, as pt. education provided re: absorption of sinemet, she has meatloaf for dinner and will need to adjust her meals accordingly prior to increasing the dose of sinemet to QID. Continue PT with [facility] 2x per week. Memory is poor, will f/u with [facility] at next appt, she is very confused today. ALVARO scan from [facility] Home speech therapy and VNA services referral is submitted, and Nurse call back phone numbers provided. Gabapentin 300mg po x3 at bedtime, pt wants to decrease to 300mg po x 2 for a total dose of 600mg po at bedtime. Mail a physical note to the patient's home. 3 month F/U Orders: Referrals [facility] Referral G20.A1 - Parkinson's disease without dyskinesia, without mention of fluctuations Medications: Changed From gabapentin 300 mg PO BEDTIME F51.01 - Primary insomnia, G20.A1 - Parkinson's disease without dyskinesia, without mention of fluctuations To gabapentin 300mg po at bedtime x 2 capsules for a total dose of 600mg. 300 mg PO BID 180 caps 0RF sleep insomnia 3 months MDD 600mg F51.01 - Primary insomnia, G20.A1 - Parkinson's disease without dyskinesia, without mention of fluctuations Patient Instructions: Sleep Hygiene provided: set a scheduled bedtime and wake time to help regulate the circadian rhythm and balance the release of pituitary hormones. Sleep in a dark room, temperatures below 68 degrees, and no devices n bed. Limit caffeinated products 6 hours prior to bed, and limit fluids 2-4 hours prior to bed. Gentle night yoga, diffusing essential oils, and playing soft music can be relaxing. Parkinsons Disorder: Eating foods that contain meat products will bind the receptors in your GI lining and not allow for absorption of the medications. For proper absorption ensure meat products are eating 2 hours after taking medication (carbidopa/ levodopa )Sinemet 25/100mg TID. May take medication with a fruit or cracker. Continue to find a support group for Parkinsons Disorder, many facilities will provide trainers who specialize in movement disorders, look into [employer] or [employer] in [place]. Join a weekly discussion group for pts who live with Parkinsons and their journey. Medications: Fluoxetine 10mg po daily for depression. Zonisamide 250mg po for epeleptic disorder, continue. Gabapentin can be reduced from 900mg po to 600mg po at bedtime but monitor for increase in symptoms of pain and Insomnia. Propranolol 80mg po at bedtime, ensure the dose it correct and you are taking it exactly as prescribed to avoid low bp. Headaches: Qulipta 60mg chronic migraines, and / Episodic migraines continue Rizatriptan and or Ellitriptan 20mg po prn. Monitor frequency and severity of headaches if possible and avoid triggers, stay well hydrated. May adjunct with magnesium 200mg po daily, may continue B12 1000mcg daily, and vitamin D 25mcg daily. Insomnia: It is best to get sleep between the hours of midnight to 5am, try to regulate the circadian rhythm and sleep during the night by decreasing daytime naps, if possible. She declines sleep study despite discussing the benefits of therapy and pt. education. I spent over 60 min today providing education to pt and , reviewing imaging, and labs. Call the office with questions and or send a portal message for assistance. . Coding Level of Care Code Est Pt Level 4 (45560) Complex EM visit Add On G2211 Diagnoses Parkinson's disease without dyskinesia or fluctuating manifestations G20.A1 Dyskinesia presence: without dyskinesia Fluctuating manifestations: without fluctuating manifestations Other intractable epilepsy without status epilepticus G40.804 Epilepsy type: other Intractability: intractable Status epilepticus: without status epilepticus Primary insomnia F51.01 Insomnia type: primary Coarse tremors G25.2
[2025-02-16 13:04] VITALS: BP 110/60; PULSE 62; O2SAT 96; BMI 22.1
--- OUTSIDE RECORDS SUMMARY | 2025-02-16 14:29 | XMS_ITS | Encounter Summary ---
Author Organization [facility] Address [address] [place] [address] Encounters * CPT with Grover Asif at [employer] on 2024-11-27 { reasonForRequest : Patient has a possible UTI and a Sore throat , patient Reports : , denies :[ Unable to void greater than 5 hours ,"Erection that will not go away after 2 hours , Fall or trauma that results in urinary inc ontinence in the setting of pain , Fall or injury that results in incontinence in the absence of pain , Lower back pain either unilateral or bilateral, unable to void, painful urination -hematuria ], chiefComplaints : Sore Throat, Urinary Symptoms , pmh : Dementia (e.g., Alzheimer's Disease), Migraine, Epilepsy/Seizure Disorder, Parkinson's Disease , allergies : Amitriptyline, Amoxicillin, Ativan, Flagyl, Lamotrigine, Macrobid, Nystatin , otherAllergies : Velosef , painAssessment : , visitOutcome : , additionalComments : AdditionalPMH: Bronchiectasis \n73 y.o female complains of Sore Throat, Urinary Symptoms\nPatient's calling reporting patient is urinating more then normal. reports patient also has a sore throat, reports she is concerned \ the bacteria could be connected\ . Patient reportedly with increased urination and sore throat for approx one week. No known sick contacts per . No reportedfever or chills, no other voiced urinary complaints. reports patient is very tired and would prefer visit for tomorrow, \ because she gets cranky\ . Patient with \ something in her throat\ that requires patient to have her food cut up in small pieces, but no reported worsening difficulty swallowing. I provided information on the mobile health provider response time and advised the patient and/or caregiver to monitor reported signs and symptoms. I discussed the warning signs of when to seek emergency care -ISABELA Pulido6 responds to the listed address for a 73 yof w/ a c/c of increased urinary frequency and sore throat. Upon arrival on scene, pt is found sitting on the edge of her hospital bed located in the living [facility] she [facility] w/ her . She is just waking up and attempting to get up to use the bathroom. The townhouse is clean and well kept. Pt is not in acute distress. No stridor or sonorous respirations are present. No facial droop, one-sided weakness, or slurred speech are observed,and she is not bleeding anywhere. She is moving slowly, which, according to her , is her baseline, but in a smooth and coordinated manner. tells SHRADDHA pt has been having a sore throat and incre ased urinary frequency for about a week. is concerned about the sore throat being somehow connected to a UTI and says she feels the throat is getting worse. Pt is endorsing sore throat that is more painful in the morning. She says it is uncomfortable to swallow, but does not feel like she is swallowing sharp objects and she does not feel it is swollen or affecting her ability to breathe. Shedoes say she has been feeling mildly congested and having some post-nasal drip. Pt is denying dark,malodorous urine, fevers/chills, n/v/d, itching/burning urination, or back/flank pain. She also denies cp, sob, and abd pain. Pt consents to evaluation and treatment today. [facility] obtains pt consent. She is able to provide a urine sample for culture and UA. Vital signs are obtained and pt is assessed. Head is atraumatic and normocephalic. Sclera are clear, pupils are PERRL, and extraocular movements are intact. Conjunctiva and oral mucosa are pink and moist. R tonsil appears mildly red and swollen and oropharynx appears somewhat red and irritated. Neck is supple and trachea is midline. No swelling of glands or lymph nodes is noted. Chest rises and falls w/ respirations and lung sounds are clear to auscultation bilaterally. Abdomen is soft and nontender and no CVA tenderness is present. CMS is intact and no pedal edema is noted. Urine sample is obtained for culture and UA is performed. Pt is swabbed for COVD/flu and Strep A. Nasal and throat swabs are negative. [facility] contacts [facility] and discusses the above. [facility] elects to wait for culture results prior to prescribing abx and advises pt and contact pt's PCP to discuss obtaining a pelvic exam if culture resultscome back as negative or inconclusive. [facility] discusses the plan w/ pt and her and they are amenda ble to the plan. [facility] discusses trying some herbal tea w/ honey and lemon to help soothe the throat.[facility] then advises them to call 911 if pt develops a high fever, ams, syncope, uncontrolled n/v/d, black/bloody stools, cp, or sob. Both give their verbal understanding and thank [facility] for coming. [facility] is clear. Report completed by AMOS Ramsey [id number]. ORAL_MEDICATION, EKG, POC_BLOODWORK, POC_FLU_STREP, GLUCOSE, COVID_TEST Written by Grover Asif on 2024-11-27
--- OUTSIDE RECORDS SUMMARY | 2025-02-16 14:29 | XMS_ITS | Encounter Summary ---
Author Organization [facility] Address [address] [place] [address] Care Team Providers Care Administrative Program Specialist Name Role Phone Kimmy Owen Primary Care Provider +1- [phone] Reason for Visit * Reason Onset Date Comments Triage 04/24/2020 Encounter Details Date Type Department Care Team (Late st Contact Info) Description 04/24/2020 Telephone [facility] Neurology Clinic [address] [place], [place] [id number] Mike Blake MD [address] [place] [address] [place] [address] Triage Social History Tobacco Use Types Packs/Day Years [...] AM EDT documented as of this encounter Miscellaneous Notes * Telephone Encounter - Karol Hahn - 04/27/2020 1:21 PM EST lvm to patient to please called back to schedule appt with dr blake for 06/05/2020 at 11 am as in person visit as dr blake request. * Telephone Encounter - Yesenia Ortiz LPN - 04/24/2020 4:03 PM EST I mailed the lab slips to the pt. Could you call to set up the appt with Dr. Blake? Thanks Ivonne * Telephone Encounter - Mike Blake MD - 04/24/2020 3:34 PM EST Called patient to discuss. ZNS was refilled as requested. Also says she's been feeling extra tipsy lately, prone to fall over a little more than I used to. Wondering if this is medication related. 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 Labs have no been checked in years according to [facility]. I offered them an appointment on 05/04 (or any day that week), butthey declined. They would prefer a sooner appointment in May 2020. We will shoot for 06/05/20, and plan to have labs checked before that. Of note, patient was also seen in the movements disorders clinic, and they were prescribing some of these medications. * Telephone Encounter - Yesenia Ortiz LPN - 04/24/2020 2:[address] Blake, This pt is a former pt of Dr. Guerrero who has an appt with you in August. She said she has been feeling a little more tipsy lately. Pt.'s phone number is [phone]. Please advise or please call pt back. Jackie Coronado documented in this encounter Plan of Treatment Upcoming Encounters Date Type Department Care Team (Late st Contact Info) Description 06/19/2025 4:00 PM EST Office Visit [facility] Neurology Clinic [address] [place] [address] Ana Mahajan MD [address] [place] [id number] Scheduled Orders Name Type Priority Associated Diagnoses Orde r Schedule Comprehensive Metabolic Panel Lab Routine Focal epilepsy with impairment of consciousness, intractable Dizziness and giddiness Expected: 04/24/2020, Expires: 04/24/2021 CBC auto differential Lab Routine Focal epilepsy with impairment of consciousness, intractable Dizziness and giddiness Expected: 04/24/2020, Expires: 04/24/2021 Magnesium Lab Routine Focal epilepsy with impairment of consciousness, intractable Dizziness and giddiness Expected: 04/24/2020, Expires: 04/24/2021 Phosphorus Lab Routine Focal epilepsy with impairment of consciousness, intractable Dizziness and giddiness Expected: 04/24/2020, Expires: 04/24/2021 Zonisamide level Lab Routine Focal epilepsy with impairment of consciousness, intractable Dizziness and giddiness Expected: 04/24/2020, Expires: 04/24/2021 Primidone & Metabolite Level Lab Routine Focal epilepsy with impairment of consciousness, intractable Dizziness and giddiness Expected: 04/24/2020, Expires: 04/24/2021 Vitamin B12 Lab Routine Focal epilepsy with impairment of consciousness, intractable Dizziness and giddiness Expected: 04/24/2020, Expires: 04/24/2021 Vitamin B1 (Thiamine), Whole Blood Lab Routine Focal epilepsy with impairment of consciousness, intractable Dizziness and giddiness Expected: 04/24/2020, Expires: 04/24/2021 RPR (Diagnosis) w/Reflex to Titer & Confirmation Lab Routine Focal epilepsy with impairment of consciousness, intractable Dizziness and giddiness Expected: 04/24/2020, Expires: 04/24/2021 TSH Lab Routine Focal epilepsy with impairment of consciousness, intractable Dizziness and giddiness Expected: 04/24/2020, Expires: 04/24/2021 documented as of this encounter Visit Diagnoses Diagnosis Focal epilepsy with impairment of consciousness, intractable- Primary Localization-related (focal) (partial) epilepsy and epileptic syndromes with simple partial seizures, with intractable epilepsy Dizziness and giddiness documented in this encounter Care Teams Administrative Program Specialist Relationship Specialty Start Date End Date Kimmy Owen Jony [address] [facility] [address] [place] [address] PCP - General Family Medicine 01/23/21 documented as of this encounter
--- OUTSIDE RECORDS SUMMARY | 2025-02-16 14:29 | XMS_ITS | Encounter Summary ---
Author Organization [facility] Address [address] [place] [address] Care Team Providers Care Elementary Art Teacher Name Role Phone Kimmy Owen Primary Care Provider +1- [phone] Encounter Details Date Type Department Care Team (Late st Contact Info) Description 05/22/2022 Telephone [facility] Central Scheduling Department [address] [place] [address] Telephone Intake, Staff Social History Tobacco Use Types Packs/Day Years [...] encounter Miscellaneous Notes * Telephone Encounter - Kathy Sol - 05/22/2022 4:37 PM EST Pt scheduled 09/08 at 1:00. * Telephone Encounter - Maggi Castro - 05/22/2022 2:07 PM EST Please contact patient to schedule EST PT = Follow up Seizures - Previous pt of Dr Blake pt Was advised to f\u w\ Dr Hernandez No scheduled available Callback# documented in this encounter Plan of Treatment Upcoming Encounters Date Type Department Care Team (Late st Contact Info) Description 06/19/2025 4:00 PM EST Office Visit [facility] Neurology Clinic [address] [place] [address] Ana Mahajan MD [address] [place] [address] documented as of this encounter Visit Diagnoses Not on filedocumented in this encounter Care Teams Elementary Art Teacher Relationship Specialty Start Date End Date Kimmy Owen Jony [address] [address] PCP - General Family Medicine 01/23/21 documented as of this encounter
--- OUTSIDE RECORDS SUMMARY | 2025-02-16 14:29 | XMS_ITS | Encounter Summary ---
Author Organization [facility] Address [address] [place] [address] Care Team Providers Care Lawn Mower Sharpener Name Role Phone Kimmy Owen Primary Care Provider +1- [phone] Encounter Details Date Type Department Care Team (Late Contact Info) Description 08/25/2024 Orders Only [facility] Nuclear Medicine [address] [place] [address] Eleno Moon MD [address] [place] [address] [id number] Social History Tobacco Use Types Packs/Day Years [...] Encounters Date Type Department Care Team (Late Contact Info) Description 06/19/2025 4:00 PM EST Office Visit [facility] Neu[facility] [address] [place], [place] [phone] Ana Mahajan MD [address] [place] [address] documented as of this encounter Visit Diagnoses Not on filedocumented in this encounter Care Teams Lawn Mower Sharpener Relationship Specialty Start Date End Date Kimmy Owen [address] [address] PCP - General Family Medicine 01/23/21 documented as of this encounter
--- OUTSIDE RECORDS SUMMARY | 2025-02-16 14:29 | XMS_ITS | Patient Health Record ---
Author Organization [facility] Address [address] [place] [address] Care Team Providers Care Career Discovery Teacher Name Role Phone Víctor Desir Primary Care Provider Reason For Referral No Information Plan Of Treatment No Information
--- OUTSIDE RECORDS SUMMARY | 2025-02-16 14:29 | XMS_ITS | Encounter Summary ---
Author Organization [facility] Address [address] [place] [address] Care Team Providers Care Rn Tele Name Role Phone Kimmy Owen Primary Care Provider +1- [phone] Encounter Details Date Type Department Care Team (Late Contact Info) Description 08/11/2024 Med.ly Message [facility] Financial Clearance Department [address] [place] [address] [place], Generic Provider [address] [place], [place] [id number] Approval Social History Tobacco Use Types Packs/Day [...] Description 06/19/2025 4:00 PM EST Office Visit [facility] Neurology Clinic [address] [place] [address] Ana Mahajan MD [address] [place] [address] documented as of this encounter Visit Diagnoses Not on filedocumented in this encounter Care Teams Rn Tele Relationship Specialty Start Date End Date Kimmy Owen [address] [address] PCP - General Family Medicine 01/23/21 documented as of this encounter
--- OUTSIDE RECORDS SUMMARY | 2025-02-16 14:29 | XMS_ITS | Continuity of Care Document ---
Author Name [facility] Address [address] [place] [address] Organization Unknown Address [address] [place] [address] Medications No known medications Problems No known problems
--- OUTSIDE RECORDS SUMMARY | 2025-02-16 14:29 | XMS_ITS | Encounter Summary ---
Author Organization [facility] Address [address] [place] [address] Care Team Providers Care School Business Administrator Name Role Phone Kimmy Owen Primary Care Provider +1- [phone] Reason for Visit * Reason Onset Date Comments appointment 07/16/2021 Encounter Details Date Type Department Care Team (Late st Contact Info) Description 07/16/2021 Telephone [facility] Neurology Clinic [address] [place], [place] [phone] Telephone Intake, Staff appointment Social History Tobacco Use Types Packs/Day Years [...] encounter Miscellaneous Notes * Telephone Encounter - Martha Majano - 07/16/2021 2:30 PM EST I called to scheduled movent with Dr Dave hernandez for the patient to return our call * Telephone Encounter - Martha Majano - 07/16/2021 2:30 PM EST ----- Message from Mike Blake MD sent at 07/16/2021 11:36 AM EST ----- Regarding: appointment Hello, Can you please help re-schedule this patient MOVEMENT disorders evaluation? Looks like the last twoappointments were cancelled. Thank you. Mike documented in this encounter Plan of Treatment Upcoming Encounters Date Type Department Care Team (Late st Contact Info) Description 06/19/2025 4:00 PM EST Office Visit [facility] Neurology [facility] [address] [place] [address] Ana Mahajan MD [address] [place], [place] [phone] documented as of this encounter Visit Diagnoses Not on filedocumented in this encounter Care Teams School Business Administrator Relationship Specialty Start Date End Date Kimmy Owen Jony [address] [place] [address] PCP - General Family Medicine 01/23/21 documented as of this encounter
--- OUTSIDE RECORDS SUMMARY | 2025-02-16 14:29 | XMS_ITS | Encounter Summary ---
Author Organization [facility] Address [address] [place] [address] Care Team Providers Care Puncher Name Role Phone Kimmy Owen Primary Care Provider +1- [phone] Encounter Details Date Type Department Care Team (Late Contact Info) Description 12/05/2020 Orders Only [facility] [address] [place] [address] Provider, Generic External Data Social History Tobacco Use Types Packs/Day Years [...] Description 06/19/2025 4:00 PM EST Office Visit [facility] [address] [place] [address] Ana Mahajan MD [address] [place] [address] documented as of this encounter Procedures * Due to [place] [employer] [employer] law, this organization might not be sharing negative HIV tests. Procedure Name Priority Date/Time Associated Diagnosis Comments AMB EXTERNAL MRI BRAIN, OUTS SHELL RESULT Routine 12/03/2020 documented in this encounter Results * Due to [place] [employer] [employer] law, this organization might not be sharing negative HIV tests. * MRI Brain, Outside Result (12/03/2020) Anatomical Region Laterality Modality Other Generic External Data Provider AMB EXTERNAL RESU LT PROCEDURES Final Result documented in this encounter Visit Diagnoses Not on filedocumented in this encounter Care Teams Puncher Relationship Specialty Start Date End Date Kimmy Owen [address] [place] [address] PCP - General Family Medicine 01/23/21 documented as of this encounter
--- OUTSIDE RECORDS SUMMARY | 2025-02-16 14:29 | XMS_ITS | Continuity of Care Document ---
Author Name [facility] Address [address] [place] [id number] Organization Unknown Address [address] [place] [address] Medications No known medications Problems No known problems
--- OUTSIDE RECORDS SUMMARY | 2025-02-16 14:30 | XMS_ITS | Encounter Summary ---
Author Organization [facility] Address [address] [facility] [place] [address] Encounters * CPT with Medical [facility] at [facility] on 2025-01-20 { reasonForRequest : poss bug bites , patientReports : Rash; Bites -bugs, spider , denies :[ Hunter Flash, circumferential hunter , Hunter reported with black tissue to the area , Open skin area after a fall with uncontrolled bleeding , Abscess/infection with streaking noted, presence of fever or without ,"History of cellulitis, isolated redness noted , Fever and chills noted in setting of wound , Abscess ], chiefComplaints : Rash , pmh : Dementia (e.g., Alzheimer's Disease), Migraine, Epilepsy/Seizure Disorder, Parkinson's Disease , allergies : Amitriptyline, Amoxicillin, Ativan, Flagyl, Lamotrigine, Macrobid, Nystatin , otherAllergies :null, painAssessment : , visitOutcome : , additionalComments : 74 y.o female complains of Rash\nPatient'swife calling in referral\nPatient's noticed them about 5 days ago\n3 possible bug bites or rash \nnickel size areas red raised and not leaking, starting to spread on left leg. \nThey have tried hydrocortisone cream with no relief. \ndenies any fever chills or body aches.\nrequesting [facility] assessment\n\n\nI provided information on the mobile health provider response time and advised the patient and/or caregiver to monitor reported signs and symptoms. I discussed the warning signs of when to seek emergency care. } Note [facility] visit for female patient with complaint of red suspected bug bites on her leg. Patient reports first noting the red welts about five days ago. Patient was not aware of any insect bites or contact with any other substances that would potentially cause this. Pt has tried hydrocortisone withoutany improvement. Pt presents appearing well with 3 red thompson notable on left lower leg. V/S taken as listed. Pt afebrile. Images taken for [facility] review. Lungs clear bilaterally. Red thompson are non blanching on exam. Consulted with [facility] Dr. Gregorio who prescribed bacitracin and advised pt and to continue monitoring.Pt education provided. PO_MEDICATION Written by Medical [facility] on 2025-01-20
--- OUTSIDE RECORDS SUMMARY | 2025-02-16 14:30 | XMS_ITS | Clinical Summary ---
Author Organization [facility] Address [address] [place] [address] Care Team Providers Care Oil Well Service Operator Name Role Phone Kimmy Owen Primary Care Provider +1- [phone] Allergies Active Allergy Reactions Criticality Noted Date Comments Amitriptyline Unknown 11/05/2019 Amoxicillin Indigestion 03/23/2017 Cephradine Unknown 11/05/2019 Lamotrigine Dizziness High 03/23/2017 Severe vertigo Metronidazole Unknown 11/05/2019 Nystatin Rash Low 04/20/2017 Medications * This document contains information received from the source organization and may not represent a complete record from that organization. calcium citrate-vitamin D3 315-250 mg-unit tablet 009 Active fluoride, sodium, 1.1 % cream Denta 5000 Plus 1.1 % Dental Cream USE DIRECTED DAILY Quantity: 51; Refills: 0 Started [id number] Active 015 Active mucus clearing device device 1 Device. 017 Active sodium chloride 7% nebulizer solution Inhale 4 mL via nebulizer. 017 Active nebulizer accessories misc by Miscellaneous route. Active calcium carbonate (CALCIUM 600 ORAL) Take 600 mg by mouth daily. Active estradiol (ESTRACE) 0.01 % (0.1 mg/gram) vaginal cream PLACE 2 G VAGINALLY DAILY NEEDED. DO NOT USE MORE THAN 2X/WEEK ON A REGULAR BASIS [address] (PROTONIX) 40 mg tablet Active albuterol 2.5 mg/3 mL (0.083%) nebulizer solution Inhale 2.5 mg by mouth every 6 hours as needed. Active albuterol 2.5 mg/3 mL (0.083%) nebulizer solution INHALE 1 VIAL (3 ML) BY NEBULIZATION EVERY 6 HOURS NEEDED. Active phenylephrine-pra wteafs-iqgnrjyl-p etrolatum (PREPARATION H) 0.25-1 % cream cream Insert into the rectum 2 times daily. Active cholecalciferol (VITAMIN D3) 2,000 unit capsule Take 1 capsule (2,000 Units total) by mouth once a day. 30 capsule 11 Active senna (SENOKOT) 8.6 mg tablet Take 1 tablet by mouth daily as needed for constipation. Active lactobacillus combination no.4 (Probiotic) 3 billion cell capsule Take 1 tablet by mouth once a day. Active lidocaine viscous 2% (20 mg/mL) solution 15 mL every 4 hours as needed. Active DULoxetine DR (CYMBALTA) 60 mg capsule Take 60 mg by mouth once a day. Active rizatriptan SURGICAL COORDINATOR (MAXALT-SURGICAL COORDINATOR) 10 mg disintegrating tabletIndications :Headache disorder Dissolve 1 tablet (10 mg total) in the mouth once as needed for migraine. May repeat in 2 hours if unresolved. Do not exceed 30 mg in 24 hours. 10 tablet 5 2025 Active carbidopa-levodop a (SINEMET) 25-100 mg per tablet Take 0.5 tablets by mouth 2 times a day. Take 1/2 tab at breakfast and dinner 90 tablet 3 025 2025 Active methylPREDNISolon e (MEDROL DOSEPACK) 4 mg tablet Take as directed on package 1 tablet Active naproxen (NAPROSYN) 500 mg tablet 1 TAB AT ONSET OF HEADACHE, MAY REPEAT IN 8 HOURS, NO MORE THAN 2 PER DAY OR 6 PER WEEK 24 tablet 5 Active zonisamide (ZONEGRAN) 100 mg capsule TAKE 2 CAPSULES BY MOUTH ONCE A DAY. TAKE WITH TWO 25 MG PILLS FOR A TOTAL OF 250 MG DAILY 180 capsule 1 Active zonisamide (ZONEGRAN) 25 mg capsule Take 2 capsules (50 mg total) by mouth once a day. To be taken with 200mg tab (TDD: 250mg) 180 capsule 1 025 Active cyanocobalamin (VITAMIN B12) 1,000 mcg tablet TAKE 1 TABLET (1,000 MCG TOTAL) BY MOUTH DAILY 90 tablet 3 Active gabapentin (NEURONTIN) 300 mg capsule TAKE 3 CAPSULES (900 MG TOTAL) BY MOUTH EVERY NIGHT. 270 capsule 3 Active propranoloL (INDERAL) 80 mg tablet TAKE 1 TABLET (80 MG TOTAL) BY MOUTH 2 TIMES A DAY. 180 tablet 1 Active primidone (MYSOLINE) 50 mg tablet TAKE 2 TABLETS BY MOUTH 2 TIMES A DAY. 360 tablet Active cyanocobalamin (vitamin B-12) 1,000 mcg tablet Take 1 tablet (1,000 mcg total) by mouth once a day. 90 tablet 3 024 2024 Discontinued gabapentin (NEURONTIN) 300 mg capsule Take 3 capsules (900 mg total) by mouth every night. 270 capsule 3 024 2024 Discontinued propranoloL (INDERAL) 80 mg tablet TAKE 1 TABLET (80 MG TOTAL) BY MOUTH 2 TIMES A DAY. 180 tablet 1 025 2024 Discontinued primidone (MYSOLINE) 50 mg tablet TAKE 2 TABLETS (100 MG TOTAL) BY MOUTH 2 TIMES A DAY. 360 tablet 025 2024 Discontinued Active Problems Problem Noted Date Diagnosed Date Falls frequently 01/21/2023 Partial idiopathic epilepsy with seizures of localized onset, not intractable, without status epilepticus 01/21/2019 Subjective memory complaints 10/27/2016 Focal seizures 07/04/2015 Gastro-esophageal reflux disease with esophagiti s 11/25/2010 Osteoporosis 11/25/2008 Migraine headache 11/25/2008 Depression 11/25/2008 Benign familial tremor 11/25/2008 Encounters Date Type Department Care Team Description 02/06/2025 Refill [facility] [address] [place] [address] Ferdinand Leiva NP 02/06/2025 Refill [facility] [address] [place] [address] Anne Boogie MD 02/06/2025 Refill [facility] [address] [place] [address] Ana Mahajan MD 01/19/2025 Refill [facility] [address] [place] [address] Ana Mahajan MD 12/24/2024 Refill [facility] [address] [place] [address] Samuel Pardo PA Partial idiopathic epilepsy with seizures of localized onset, not intractable, without status epilepticus (HCC) [facility] [address] [place] [address] Anne Boogie MD from Last 3 Months Immunizations Immunization Administration Dates Next Due Covid-19 Monovalent Vaccine, Moderna, mRNA, PF 1 Family History Medical History Relation Name Comments Other Brother Family History of basal cell carcinoma Cancer Father Other Father Family History of liver cancer Emphysema Mother Other Mother Family history of Emphysema/COPD Seizures Paternal Grandmother Other Sister Family History of hypertension Relation Name Status Comments Brother Father Mother Paternal Grandmother Sister Social History Tobacco Use Types Packs/Day Years Used Date Smoking Tobacco: Never Smokeless Tobacco: Never Tobacco Cessation:Counseling Given: Not Answered Comments:: Alcohol Use Standard Drinks/Week Comments No 0 (1 standard drink = 0.6 oz pur e alcohol) Comments Unknown Sex and Gender Information Value Date Recorded Sex Assigned at Female 07/23/2023 10:47 AM EST Legal Sex Female 9:06 AM EDT Gender Identity Female 09/21/2024 9:22 AM EDT Sexual Orientation Lesbian or Faria 09/21/2024 9: 22 AM EDT Last Filed Vital Signs Vital Sign Reading Time Taken Comments Blood Pressure 96/57 08/24/2024 2:16 PM EDT Pulse 64 08/24/2024 2:16 PM EDT Temperature 35.9 C (96.6 F) 08/24/2024 2:16 PM EDT Respiratory Rate 18 08/24/2024 2:16 PM EDT Oxygen Saturation 96% 08/24/2024 2:16 PM EDT Inhaled Oxygen Concentration - - Weight 56.7 kg (125 lb) 08/24/2024 2:16 PM EDT Height 161.3 cm (5' 3.5 ) 12/22/2023 1:06 PM EDT Body Mass Index 21.8 12/22/2023 1:06 PM EDT Plan of Treatment Upcoming Encounters Date Type Department Care Team (Late st Contact Info) Description 06/19/2025 4:00 PM EST Office Visit [facility] [address] [place] [address] Ana Mahajan MD [address] [place] [address] Health Maintenance Due Date Last Done Comments Cologuard 1950 Colon Cancer Screening 1950 Colonoscopy 1950 FOBT / Fit Test 1950 Hepatitis C Screening 1950 Sigmoidoscopy 1950 Mammogram 03/31/2020 03/31/2018, 03/31/2018 Zoster Vaccines (3 of 3) 12/13/2022 10/18/2022, 04/0 12/2017 Alcohol/Substance Use Screening 05/18/2024 Depression Screening and Follow-Up 05/18/2024 Health Care Proxy Review 05/18/2024 Social Drivers of Health Tawny ual Screening 05/18/2024 COVID-19 Vaccine (2024-2 6 season) 2025 03/07/2024, 03/07/2024, 03/03/2023, Additional history exists Influenza Vaccine (#1) 2025 , 03/03/2023, 03/12/2022, Additional history exists RSV Vaccine (60+ years old a nd patients) (1 - 1-dose 75+ series) 11/29/2027 DTaP,Tdap,and Td Vaccines (4 - Td or Tdap) 07/27/2028 07/27/2018, 05/21/2007, 05/21/2007, Additional history exists Hepatitis B Vaccines Completed 09/20/2002, 04/25/2002, 03/14/2002 Osteoporosis Screening Completed 01/25/2021, 2018 Pneumococcal Vaccine: 50+ Years Completed , 08/11/2022 Insurance [facility] [place] [id number] Care Teams Oil Well Service Operator Relationship Specialty Start Date End Date MauriKimmy hunt Jony [address] [place] [address] PCP - General Family Medicine 01/23/21
--- OUTSIDE RECORDS SUMMARY | 2025-02-16 14:30 | XMS_ITS | Patient Health Record ---
Author Organization [facility] Address [address] [place] [address] Care Team Providers Care Lieutenant General Name Role Phone Kimmy Owen Primary Care Provider Hill Hennessy Unavailable [phone] Allergies Allergen (clinical drug ingredient) Drug/Non Drug [...] Active nystatin Nystatin rash Drug Allergy Active Reason For Referral No Information Medications Medication SIG (Take, Route, Frequency, Duration) Notes Start Date End Date Status Vitamin B-12 1000 MCG TAKE 1 TABLET (1,0 00 MCG TOTAL) BY MOUTH DAILY Oral; Duration: 90 Days Active Propranolol HCl 80 MG 1 tablet Oral Twic e a day; Duration: 90 days Active Qulipta 30 MG 1 tablet Orally Once a day; Duration: 30 days 12/05/2024 04/25/2025 Active Primidone 50 MG 2 tablets Oral twice a day; Duration: 90 days Active Carbidopa-Levodopa 25-100 MG 1 tablet Oral Three times a day; Duration: 90 days Active Pantoprazole Sodium 40 MG TAKE 1 TABLET BY MOUTH DAILY Oral; Duration: 90 Days Active Gabapentin 300 MG 3 capsule Orally Onc e a day; Duration: 90 days Active Rizatriptan Benzoate 10 MG 1 tablet Oral ly 1 at the onset of migraine may repeat once more in 2 hours if needed mdd 2; Duration: 30 01/24/2025 Active Zonisamide 100 MG TAKE 2 CAPSULES BY M OUTH ONCE A DAY. TAKE WITH TWO 25 MG PILLS FOR A TOTAL OF 250 MG DAILY Oral; Duration: 90 Days Active Magnesium Oxide 400 MG 1 tablet Orally t wice a day; Duration: 30 days Active Sodium Chloride 7 % Inhalation; Duration : 30 Days Active Rizatriptan Benzoate 10 MG 1 tablet Oral ly twice a day as needed; Duration: 17 days Active DULoxetine HCl 60 MG 1 capsule Orally On ce a day; Duration: 90 days Active Nurtec 75 MG 1 tablet on the tong ue and allow to dissolve Orally 1 at the onset of migraine mdd 1; Duration: 30 Active Naproxen 500 MG 1 TAB AT ONSET OF HEADACHE, MAY REPEAT IN 8 HOURS, NO MORE THAN 2 PER DAY OR 6 PER WEEK Oral; Duration: 28 Days Active Social History Tobacco Use: Social History Observation Description Date Details (start date - stop date) Never Smoker NA - NA Tobacco Control (Standard) Question Answer Notes Tobacco use: Nonsmoker Problems Problem Type SNOMED Code ICD Code Onset Dates Problem Status W/U Status Risk Notes Problem Chronic migraine without aura, non-intractab le (876279058233 100) Chronic migraine w/o aura w/o status migrainosus, not intractable (G43.709) Active confirmed Problem Localization- related epilepsy (215172077) Partial idiopathic epilepsy with seizures of localized onset, not intractable, without status 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) Active confirmed Problem Parkinson's disease with dyskinesia and fluctuating manifestations (G20.B2) Active confirmed Vital Signs Heart Rate 68 /min 01/24/2025 Blood pressure diastolic 72 mm Hg 01/24/2025 Height 63 in 01/24/2025 Blood pressure systolic 117 mm Hg 01/24/2025 Weight 125 lbs 01/24/2025 BMI 22.14 kg/m2 01/24/2025 Encounters Encounter Location Date Provider Diagnosis [facility] [address] [address] 12/05/2024 Hill De La Garza Chronic migraine w/o aura w/o status migrainosus, not intractable G43.709 [facility] [address] [address] 01/24/2025 Hill Zendejasi Chronic migraine w/o aura w/o status migrainosus, not intractable G43.[address] [place] [address] 11/04/2024 Gretchenvang De La Garza [address] [address] 12/26/2024 Shivang De La Garza Chronic migraine w/o aura w/o status migrainosus, not intractable G43.[address] [place] [address] 12/26/2024 Gretchenvanheather OviedoDe La Garza Chronic migraine w/o aura w/o status migrainosus, not intractable G43.709 [facility] [address] [address] 01/18/2025 Gretchenvang De La Garza Chronic migraine w/o aura w/o status migrainosus, not intractable G43.709 Assessments Encounter Date Diagnosis (ICD Code) Assessment Notes Treatment Notes Treatment Clinical Notes Section Notes 12/05/2024 Chronic migraine w/o aura w/o status migrainosus, not intractable (ICD-10 - G43.709) Impression 1. Chronic migraine without aura There is a potential rebound component, from excessive use of rizatriptan within a short period of time. Caution advised. Will add nurtec for acute treatment as well as qulipta, magnesium for prevention. Rare potential for Raynaud's phenomenon discussed, advised to discontinue if any adverse effects. Also discussed other potential adverse effects. We discussed potential for Botox down the line as well. We discussed risk versus benefits of all medications. Patient's partner wanting immediate treatment I discussed with her in detail that preventive medications do not work right away, also provided new acute medication, Nurtec. Patient's partner had multiple questions regarding treatment plan, all questions were answered written instructions on dosing was also given samples of Nurtec given as well. We discussed nonpharmacological options including only trying magnesium however patient's partner stated wanted something stronger. We discussed Botox however stated that they live far away from the hospital and if there were to be any reactions this would be difficult. Patient has already tried traditional migraine preventive pharmacological therapy. She was presented with all options. In the end possibly expressed some willingness to try Botox in the future, overall seemed indecisive. 2. Epilepsy disorder May secondarily benefit from zonisamide, continue, followed by other specialist. 3. Parkinson's Will try to avoid medications that may exacerbate constipation, magnesium may help balance, low potential of constipation discussed from Qulipta. Patient understood. Partner understood. Continue routine follow-up with movement disorder. 12/26/2024 Chronic migraine w/o aura w/o status migrainosus, not intractable (ICD-10 - G43.709) 12/26/2024 Chronic migraine w/o aura w/o status migrainosus, not intractable (ICD-10 - G43.709) 01/18/2025 Chronic migraine w/o aura w/o status migrainosus, not intractable (ICD-10 - G43.709) 01/24/2025 Chronic migraine w/o aura w/o status migrainosus, not intractable (ICD-10 - G43.709) Impression 1. Chronic migraine without aura We advised to continue Qulipta for a longer duration of time, can take Nurtec on top of this as needed, as well as rizatriptan. Potential adverse effects discussed. Advised to contact the office if any worsening. 2. Epilepsy disorder May secondarily benefit from zonisamide, continue, followed by other specialist. 3. Parkinson's Will try to avoid medications that may exacerbate constipation, magnesium may help balance, low potential of constipation discussed from Qulipta. Patient understood. Partner understood. Continue routine follow-up with movement disorder. Plan Of Treatment Next Appt Details Provider Name:Gretchenanastasiia Oviedoshi, 04/25/2025 02:00:00 PM, [address], [address], [place], [address], Insurance Providers Payer Name Payer Address Payer Phone Subscriber Number Group Number Insured Name Patient Relationship to Insured Coverage Start Date Coverage End Date [facility] [place] [employer] [address] [place] [address] [id number] Cat Hilton Self - patient is the insured MEDICARE [address] [facility] [place] [id number] [phone] [id number] Cat Hilton Self - patient is the insured Medical (General) History Medical History History ICD Code Parkinson's disease with dyskinesia and fluctuating manifestations G20.B2 Chronic migraine w/o aura w/o status ivonne rainosus, not intractable G43.709 Partial idiopathic epilepsy with seizures of localized onset, not intractable, without status epilepticus G40.009 Surgical History Surgery Date(Month/Year) knee surgery hip surgery
== END 2025-02-16 14:19 | disposition home or self-care (01) ==
LOC: HO.HSMS 13:01
PROVIDERS: PCP Family Medicine; Visit Provider Physician Assistant Medical
DX: G20.A1 Parkinson's disease without dyskinesia, without mention of fluctuations (principal); G40.804 Other epilepsy, intractable, without status epilepticus; F51.01 Primary insomnia; G25.2 Other specified forms of tremor
CPT/HCPCS: 99214; G2211

== ENCOUNTER → 2025-02-16 13:00 | Outpatient (BNVA) | payer OTHER, SELFPAY | PROVIDERS: PCP Family Medicine; Visit Provider Physician Assistant Medical | DX: G20.A1 Parkinson's disease without dyskinesia, without mention of fluctuations (principal); G40.804 Other epilepsy, intractable, without status epilepticus; F51.01 Primary insomnia; G25.2 Other specified forms of tremor; R26.89 Other abnormalities of gait and mobility; K59.00 Constipation, unspecified | CPT/HCPCS: 99212 ==